=== PATIENT | female | born 1990 | race Hispanic/Latino ===

== ENCOUNTER 2022-02-21 19:38 | Outpatient (CLI) | payer OTHER ==
[~2022-02-21] VITALS: Ht 157.5 cm; Wt 66.5 kg
[2022-02-21 19:53] VITALS: BP 112/74
[2022-02-21] MEDS ORDERED: PRENTAB9 PO (19:57)
[2022-02-21] MEDS ORDERED: LR 1,000 ML IV ONE (21:05)
[2022-02-21] MEDS ORDERED: ONDANSETRON 4MG 2ML VIAL IV ONE (21:05)
[2022-02-21] MEDS ORDERED: LR 1,000 ML IV SCH (21:05)
== END 2022-02-21 22:52 | disposition home or self-care (01) ==
LOC: M LDO 19:38
PROVIDERS: ATTEND Obstetrics & Gynecology
DX: O47.1 False labor at or after 37 completed weeks of gestation (principal); Z3A.37 37 weeks gestation of pregnancy; O21.2 Late vomiting of pregnancy
CPT/HCPCS: 76815; 96360; 96361; G0463; J2405

== ENCOUNTER 2022-03-07 12:51 | Inpatient (IN) | payer OTHER ==
[2022-03-07] VITALS (30 sets, daily range): BP systolic 82–116; BP diastolic 51–74
[~2022-03-07] VITALS: Ht 157.5 cm; Wt 65.8 kg
[~2022-03-07 12:51] MED LIST: PRENTAB9 PO
[2022-03-07] MEDS ORDERED: ONDA4TAB6 PO (13:05)
[2022-03-07] MEDS ORDERED: METHYLERGONOVINE MALEATE 0.2 MG/ML VIAL (J2210) IM PRN (13:25)
[2022-03-07] MEDS ORDERED: OXYTOCIN INJ 10 UNITS/ML VIAL (J2590) IV PRN (13:25)
[2022-03-07] MEDS ORDERED: TRANEXAMIC ACID INJection 1,000 MG in NS 100 ML IV PRN (13:25)
[2022-03-07] MEDS ORDERED: LACTATED RINGER'S 1000 ML IV ONE (13:25)
[2022-03-07] MEDS ORDERED: OXYTOCIN DRIP 30 UNITS in IV 1 EA IV PRN ×4 (13:25)
[2022-03-07 13:51] LABS: HEMATOCRIT 34.3 % (36.0-47.0); HEMOGLOBIN 11.5 g/dl (12.0-15.5); MEAN CORPUSCULAR HEMOGLOBIN 29.5 pg (27.0-33.0); MEAN CORPUSCULAR HGB CONC 33.5 g/dl (32.0-36.5); MEAN CORPUSCULAR VOLUME 87.9 fl (80.0-96.0); PLATELET COUNT, AUTOMATED 247 10^3/uL (150-450); WHITE BLOOD COUNT 7.7 10^3/uL (4.0-10.0)
[2022-03-07] MEDS ORDERED: ACETAMINOPHEN 500 MG TAB PO ONE (15:35)
[2022-03-07] MEDS: LR 1,000 ML IV SCH ×2 (17:34→22:22)
[2022-03-07] MEDS ORDERED: FENTANYL 2MCG/ML ROPIVACAINE 0.2% IN 0.9% NACL 100ML IVBAG As Ordered ONE (18:15)
[2022-03-07] MEDS ORDERED: NALOXONE INJ 0.4MG/1ML VIAL (J2310 PER 1MG) IV PRN ×2 (18:40→18:45)
[2022-03-07] MEDS ORDERED: ONDANSETRON 4MG 2ML VIAL IV PRN ×2 (18:40→18:45)
[2022-03-07] MEDS ORDERED: LR 500 ML IV PRN (18:40)
[2022-03-07] MEDS ORDERED: diphenhydrAMINE 50MG/ML VIAL (J1200) IV PRN ×2 (18:40→18:45)
[2022-03-07] MEDS ORDERED: EPIDURAL/PCA KEYS XX PRN ×2 (18:40→18:45)
[2022-03-07] MEDS ORDERED: METOCLOPRAMIDE INJ 10MG/2ML VIAL (J2765 PER 1) IV PRN (18:45)
[2022-03-07] MEDS ORDERED: FENTANYL/BUPIVACAINE/NACL BAG 250 ML EPIDURAL SCH (18:45)
[2022-03-07] MEDS ORDERED: NALBUPHINE HCL 10 MG/ML AMP (J2300) IV PRN (18:45)
[2022-03-07] MEDS: FENTANYL/ROPIVACAINE/NACL BAG 100 ML EPIDURAL SCH (19:27)
[2022-03-07] MEDS ORDERED: OXYTOCIN DRIP 30 UNITS in IV 1 EA IV SCH (21:00)
[2022-03-07] MEDS: ePHEDrine SULFATE 25 MG/5 ML(5MG/ML) SYRINGE IVP PRN ×2 (22:30→23:56)
[2022-03-08] VITALS (30 sets, daily range): BP systolic 86–118; BP diastolic 50–74
[2022-03-08] MEDS: ePHEDrine SULFATE 25 MG/5 ML(5MG/ML) SYRINGE IVP PRN (00:59)
[2022-03-08] MEDS: LR 1,000 ML IV SCH (01:45)
[2022-03-08] MEDS: FENTANYL/ROPIVACAINE/NACL BAG 100 ML EPIDURAL SCH (04:09)
[2022-03-08] MEDS: PRENATAL VITAMINS CHEWABLE TABLET PO SCH (09:00)
[2022-03-08] MEDS ORDERED: LIDOCAINE 1% MDV 20ML VIAL As Ordered ONE (09:22)
[2022-03-08] MEDS ORDERED: LIDOCAINE 1% MDV 20ML VIAL INFIL ONE (09:25)
[2022-03-08] MEDS ORDERED: RHOGAM 300 MCG (1500 IU) INJ (J2790) IM SCH (10:00)
[2022-03-08] MEDS ORDERED: METHYLERGONOVINE MALEATE 0.2 MG TAB PO PRN (10:00)
[2022-03-08] MEDS ORDERED: IBUPROFEN 600MG TAB PO PRN (10:00)
[2022-03-08] MEDS ORDERED: ACETAMINOPHEN TAB 650MG DOSE (2X325MG) PO PRN (10:00)
[2022-03-08] MEDS ORDERED: ANUSOL HC CREAM 30GM TOP PRN (10:00)
[2022-03-08] MEDS ORDERED: METHYLERGONOVINE MALEATE 0.2 MG/ML VIAL (J2210) IM PRN (10:00)
[2022-03-08] MEDS ORDERED: DIBUCAINE 1% OINTMENT 30GM TOP PRN (10:00)
[2022-03-08] MEDS: IBUPROFEN 800 MG TAB PO PRN (13:09)
[2022-03-08] MEDS: ACETAMINOPHEN 500 MG TAB PO PRN ×2 (13:39→19:46)
[2022-03-08] MEDS ORDERED: LIDOCAINE 5% OINT 30GM TUBE TOP SCH (17:20)
[2022-03-08] MEDS: DOCUSATE SODIUM 100MG CAPSULE PO SCH (21:25)
[2022-03-09] MEDS: IBUPROFEN 800 MG TAB PO PRN (04:27)
[2022-03-09 06:00] VITALS: BP 124/58
[2022-03-09 06:48] LABS: HEMATOCRIT 30.3 % (36.0-47.0); HEMOGLOBIN 9.8 g/dl (12.0-15.5); MEAN CORPUSCULAR HEMOGLOBIN 29.5 pg (27.0-33.0); MEAN CORPUSCULAR HGB CONC 32.3 g/dl (32.0-36.5); MEAN CORPUSCULAR VOLUME 91.3 fl (80.0-96.0); PLATELET COUNT, AUTOMATED 219 10^3/uL (150-450); RED BLOOD COUNT 3.32 10^6/uL (4.00-5.40); WHITE BLOOD COUNT 16.1 10^3/uL (4.0-10.0)
[2022-03-09] MEDS ORDERED: ACET1TAB55 PO (07:21)
[2022-03-09] MEDS ORDERED: IBUP-1022 PO (07:21)
[2022-03-09] MEDS ORDERED: COLA100C5 PO (07:21)
[2022-03-09] MEDS: DOCUSATE SODIUM 100MG CAPSULE PO SCH (09:27)
[2022-03-09] MEDS: PRENATAL VITAMINS CHEWABLE TABLET PO SCH (09:27)
[2022-03-10] MEDS ORDERED: MEASLES,MUMPS,RUBELLA VACCINE INJ (MMR-II) (90707) SC.IMMUN ONE (09:00)
== END 2022-03-09 14:20 | disposition home or self-care (01) | DRG 807 ==
LOC: M LDO 12:51 → M LDI 13:37 → M OBS 03-08 19:35
PROVIDERS: ADMIT Obstetrics & Gynecology; ATTEND Obstetrics & Gynecology
PROC: 10907ZC Drainage of Amniotic Fluid, Therapeutic from Products of Conception, Via Natural or Artificial Opening (ICD-10-PCS; 2022-03-07)
PROC: 10E0XZZ Delivery of Products of Conception, External Approach (ICD-10-PCS; principal; 2022-03-08)
DX: O69.81X0 Labor and delivery complicated by cord around neck, without compression, not applicable or unspecified (principal); Z37.0 Single live birth; Z3A.39 39 weeks gestation of pregnancy; O71.82 Other specified trauma to perineum and vulva; R33.9 Retention of urine, unspecified

== ENCOUNTER 2022-08-23 23:14 | Inpatient (IN) | payer OTHER ==
[~2022-08-23] VITALS: Ht 154.9 cm; Wt 57.1 kg
[~2022-08-23 23:14] MED LIST changes: +ACET1TAB55 PO; +COLA100C5 PO; +IBUP-1022 PO; +ONDA4TAB6 PO
[2022-08-24] MEDS ORDERED: CIPR7.5D2 (02:04)
[2022-08-24] MEDS ORDERED: ONDANSETRON 4MG 2ML VIAL IV ONE (02:40)
[2022-08-24] MEDS ORDERED: cefTRIAXone SOD 2 GM in D5W MINI-BAG PLUS 50 ML IV ONE (02:40)
[2022-08-24] MEDS: MORPHINE 4 MG/ML 1ML VIAL IV PRN ×2 (02:59→03:39)
[2022-08-24 03:14] LABS: BASO # 0.1 10^3/uL (0.0-0.2); BASO % 0.4 % (0.0-1.0); EOS % 0.3 % (0.0-3.0); HEMATOCRIT 36.1 % (36.0-47.0); HEMOGLOBIN 12.6 g/dl (12.0-15.5); LYMPH # 1.9 10^3/uL (1.5-5.0); LYMPH % 15.1 % (24.0-44.0); MEAN CORPUSCULAR HEMOGLOBIN 30.4 pg (27.0-33.0); MEAN CORPUSCULAR HGB CONC 34.9 g/dl (32.0-36.5); MONO # 1.1 10^3/uL (0.0-0.8); MONO % 9.1 % (2.0-8.0); NEUTROPHILS # 9.3 10^3/uL (1.5-8.5); NEUTROPHILS % 74.6 % (36.0-66.0); PLATELET COUNT, AUTOMATED 333 10^3/uL (150-450); RED BLOOD COUNT 4.15 10^6/uL (4.00-5.40); WHITE BLOOD COUNT 12.5 10^3/uL (4.0-10.0)
[2022-08-24 03:54] LABS: BLOOD UREA NITROGEN 5 MG/DL (9-23); CALCIUM LEVEL 8.9 MG/DL (8.5-10.1); CARBON DIOXIDE LEVEL 26 MMOL/L (20-31); CHLORIDE LEVEL 103 MMOL/L (98-107); GLOMERULAR FILTRATION RATE > 60.0 (>60); GLUCOSE, FASTING 107 MG/DL (60-100); POTASSIUM SERUM 3.1 MMOL/L (3.5-5.1); SODIUM LEVEL 138 MMOL/L (136-145)
[2022-08-24] MEDS ORDERED: PIPERACILLIN/TAZOBACTAM SOD 4.5 GM in D5W MINI-BAG PLUS 50 ML IV ONE (05:35)
[2022-08-24] MEDS ORDERED: MULTTAB20 PO (06:31)
[2022-08-24] MEDS ORDERED: CIPR7.5D5 AD (06:31)
[2022-08-24] MEDS ORDERED: ONDANSETRON 4MG 2ML VIAL IV PRN (06:35)
[2022-08-24] MEDS ORDERED: HOME MED LIST COMPLETE! XX SCH (06:35)
[2022-08-24 06:39] LABS: RSV AMPLIFICATION NEGATIVE (NEGATIVE)
[2022-08-24] MEDS: KCL 10MEQ/100ML SWI (KRUN) 10 MEQ in IV 1 EA IV SCH ×3 (07:29→10:03)
[2022-08-24] MEDS: NS 1,000 ML IV SCH ×2 (07:29→18:04)
[2022-08-24 08:02] LABS: BASO # 0.1 10^3/uL (0.0-0.2); BASO % 0.5 % (0.0-1.0); EOS % 0.3 % (0.0-3.0); HEMATOCRIT 33.4 % (36.0-47.0); HEMOGLOBIN 11.4 g/dl (12.0-15.5); LYMPH # 1.2 10^3/uL (1.5-5.0); LYMPH % 11.2 % (24.0-44.0); MEAN CORPUSCULAR HEMOGLOBIN 30.1 pg (27.0-33.0); MEAN CORPUSCULAR HGB CONC 34.1 g/dl (32.0-36.5); MEAN CORPUSCULAR VOLUME 88.1 fl (80.0-96.0); MONO # 0.8 10^3/uL (0.0-0.8); NEUTROPHILS # 8.8 10^3/uL (1.5-8.5); NEUTROPHILS % 80.5 % (36.0-66.0); PLATELET COUNT, AUTOMATED 305 10^3/uL (150-450); RED BLOOD COUNT 3.79 10^6/uL (4.00-5.40); WHITE BLOOD COUNT 10.9 10^3/uL (4.0-10.0)
[2022-08-24 08:21] LABS: BLOOD UREA NITROGEN 5 MG/DL (9-23); CALCIUM LEVEL 8.2 MG/DL (8.5-10.1); CARBON DIOXIDE LEVEL 27 MMOL/L (20-31); CHLORIDE LEVEL 103 MMOL/L (98-107); GLOMERULAR FILTRATION RATE > 60.0 (>60); GLUCOSE, FASTING 109 MG/DL (60-100); MAGNESIUM LEVEL 1.7 MG/DL (1.8-2.4); POTASSIUM SERUM 3.1 MMOL/L (3.5-5.1); SODIUM LEVEL 140 MMOL/L (136-145)
[2022-08-24] MEDS ORDERED: MORPHINE 2 MG/ML 1ML VIAL IV PRN (09:40)
[2022-08-24] MEDS ORDERED: MAG SULF 1GM/100ML (MAG RUN) 1 GM in IV 1 EA IV ONE (10:00)
[2022-08-24] MEDS: HEPARIN SOD (PORCINE) 5000UNITS/ML 1ML VIAL/SYRINGE SQ SCH ×2 (10:03→20:36)
[2022-08-24] MEDS: PIPERACILLIN/TAZOBACTAM SOD 4.5 GM in D5W MINI-BAG PLUS 50 ML IV SCH ×3 (13:48→23:54)
[2022-08-24 14:00] VITALS: BP 110/74
[2022-08-24] MEDS: CIPRODEX OTIC SUSP 7.5ML AD SCH ×2 (15:10→20:36)
[2022-08-24 20:00] VITALS: BP 109/75
[2022-08-24] MEDS: ACETAMINOPHEN TAB 650MG DOSE (2X325MG) PO PRN (20:35)
[2022-08-25] MEDS: NS 1,000 ML IV SCH ×2 (02:30→05:09)
[2022-08-25] MEDS: PIPERACILLIN/TAZOBACTAM SOD 4.5 GM in D5W MINI-BAG PLUS 50 ML IV SCH ×3 (05:09→18:36)
[2022-08-25 05:11] VITALS: BP 101/55
[2022-08-25] MEDS: ACETAMINOPHEN TAB 650MG DOSE (2X325MG) PO PRN (05:15)
[2022-08-25 06:02] LABS: HEMATOCRIT 32.1 % (36.0-47.0); MEAN CORPUSCULAR HEMOGLOBIN 30.2 pg (27.0-33.0); MEAN CORPUSCULAR HGB CONC 34.3 g/dl (32.0-36.5); MEAN CORPUSCULAR VOLUME 88.2 fl (80.0-96.0); PLATELET COUNT, AUTOMATED 343 10^3/uL (150-450); RED BLOOD COUNT 3.64 10^6/uL (4.00-5.40); WHITE BLOOD COUNT 12.6 10^3/uL (4.0-10.0)
[2022-08-25 06:33] LABS: BLOOD UREA NITROGEN 11 MG/DL (9-23); CALCIUM LEVEL 8.3 MG/DL (8.5-10.1); CARBON DIOXIDE LEVEL 26 MMOL/L (20-31); CHLORIDE LEVEL 107 MMOL/L (98-107); CREATININE FOR GFR 0.42 MG/DL (0.55-1.30); GLOMERULAR FILTRATION RATE > 60.0 (>60); GLUCOSE, FASTING 109 MG/DL (60-100); POTASSIUM SERUM 3.6 MMOL/L (3.5-5.1); SODIUM LEVEL 141 MMOL/L (136-145)
[2022-08-25] MEDS: HEPARIN SOD (PORCINE) 5000UNITS/ML 1ML VIAL/SYRINGE SQ SCH ×2 (08:55→21:00)
[2022-08-25] MEDS: CIPRODEX OTIC SUSP 7.5ML AD SCH ×2 (08:55→20:47)
[2022-08-25] MEDS ORDERED: VANCOMYCIN HCL 1,000 MG, VIAL MATE ADAPTER 1 EACH in NS 250 ML IV SCH (09:10)
[2022-08-25] MEDS ORDERED: VANCOMYCIN HCL 750 MG, VIAL MATE ADAPTER 1 EACH in D5W 250 ML IV ONE (10:00)
[2022-08-25] MEDS ORDERED: VANCOMYCIN HCL 500 MG in D5W MINI-BAG PLUS 100 ML IV ONE (11:00)
[2022-08-25] MEDS: KETOROLAC 30 MG/ML 1ML VIAL IV PRN ×2 (11:17→22:10)
[2022-08-25 14:00] VITALS: BP 112/72
[2022-08-25] MEDS: VANCOMYCIN HCL 750 MG, VIAL MATE ADAPTER 1 EACH in D5W 250 ML IV SCH (17:30)
[2022-08-25 21:00] VITALS: BP 91/55
[2022-08-26] MEDS: PIPERACILLIN/TAZOBACTAM SOD 4.5 GM in D5W MINI-BAG PLUS 50 ML IV SCH ×5 (00:11→23:54)
[2022-08-26] MEDS: VANCOMYCIN HCL 750 MG, VIAL MATE ADAPTER 1 EACH in D5W 250 ML IV SCH (01:39)
[2022-08-26] MEDS: KETOROLAC 30 MG/ML 1ML VIAL IV PRN ×2 (05:33→21:52)
[2022-08-26 05:42] VITALS: BP 106/67
[2022-08-26 08:29] LABS: BASO % 0.6 % (0.0-1.0); EOS # 0.1 10^3/uL (0.0-0.5); HEMOGLOBIN 10.8 g/dl (12.0-15.5); LYMPH # 2.6 10^3/uL (1.5-5.0); LYMPH % 39.2 % (24.0-44.0); MEAN CORPUSCULAR HEMOGLOBIN 30.1 pg (27.0-33.0); MEAN CORPUSCULAR HGB CONC 33.8 g/dl (32.0-36.5); MEAN CORPUSCULAR VOLUME 89.1 fl (80.0-96.0); MONO # 0.6 10^3/uL (0.0-0.8); MONO % 9.6 % (2.0-8.0); NEUTROPHILS # 3.3 10^3/uL (1.5-8.5); NEUTROPHILS % 49.5 % (36.0-66.0); PLATELET COUNT, AUTOMATED 330 10^3/uL (150-450); RED BLOOD COUNT 3.59 10^6/uL (4.00-5.40); WHITE BLOOD COUNT 6.7 10^3/uL (4.0-10.0)
[2022-08-26 08:58] LABS: BLOOD UREA NITROGEN 11 MG/DL (9-23); CALCIUM LEVEL 7.6 MG/DL (8.5-10.1); CARBON DIOXIDE LEVEL 26 MMOL/L (20-31); CHLORIDE LEVEL 106 MMOL/L (98-107); CREATININE FOR GFR 0.52 MG/DL (0.55-1.30); GLOMERULAR FILTRATION RATE > 60.0 (>60); GLUCOSE, FASTING 87 MG/DL (60-100); POTASSIUM SERUM 3.3 MMOL/L (3.5-5.1); SODIUM LEVEL 140 MMOL/L (136-145)
[2022-08-26] MEDS: HEPARIN SOD (PORCINE) 5000UNITS/ML 1ML VIAL/SYRINGE SQ SCH ×2 (09:00→20:03)
[2022-08-26] MEDS: VANCOMYCIN HCL 1,000 MG, VIAL MATE ADAPTER 1 EACH in D5W 250 ML IV SCH ×2 (09:53→17:22)
[2022-08-26] MEDS: CIPRODEX OTIC SUSP 7.5ML AD SCH ×2 (09:53→20:03)
[2022-08-26 14:00] VITALS: BP 107/69
[2022-08-26] MEDS: ACETAMINOPHEN TAB 650MG DOSE (2X325MG) PO PRN (14:05)
[2022-08-26] MEDS: ONDANSETRON 4MG ORAL DISINTEGRATING TAB PO PRN (14:05)
[2022-08-26] MEDS: LACTOBACILLUS ACIDOPHILUS CAP (BACID) PO SCH ×2 (18:31→20:03)
[2022-08-26 22:00] VITALS: BP 106/68
[2022-08-27] MEDS: VANCOMYCIN HCL 1,000 MG, VIAL MATE ADAPTER 1 EACH in D5W 250 ML IV SCH ×2 (00:20→08:49)
[2022-08-27 05:25] VITALS: BP 120/80
[2022-08-27] MEDS: PIPERACILLIN/TAZOBACTAM SOD 4.5 GM in D5W MINI-BAG PLUS 50 ML IV SCH ×2 (05:40→12:34)
[2022-08-27] MEDS: KETOROLAC 30 MG/ML 1ML VIAL IV PRN (05:43)
[2022-08-27 05:52] LABS: BASO # 0.1 10^3/uL (0.0-0.2); BASO % 1.1 % (0.0-1.0); EOS # 0.1 10^3/uL (0.0-0.5); EOS % 1.7 % (0.0-3.0); HEMATOCRIT 33.9 % (36.0-47.0); HEMOGLOBIN 11.3 g/dl (12.0-15.5); LYMPH # 2.4 10^3/uL (1.5-5.0); LYMPH % 44.2 % (24.0-44.0); MEAN CORPUSCULAR HEMOGLOBIN 29.6 pg (27.0-33.0); MEAN CORPUSCULAR HGB CONC 33.3 g/dl (32.0-36.5); MEAN CORPUSCULAR VOLUME 88.7 fl (80.0-96.0); MONO # 0.5 10^3/uL (0.0-0.8); MONO % 9.7 % (2.0-8.0); NEUTROPHILS # 2.3 10^3/uL (1.5-8.5); NEUTROPHILS % 42.9 % (36.0-66.0); PLATELET COUNT, AUTOMATED 366 10^3/uL (150-450); RED BLOOD COUNT 3.82 10^6/uL (4.00-5.40); WHITE BLOOD COUNT 5.5 10^3/uL (4.0-10.0)
[2022-08-27 06:13] LABS: BLOOD UREA NITROGEN 7 MG/DL (9-23); CALCIUM LEVEL 8.1 MG/DL (8.5-10.1); CARBON DIOXIDE LEVEL 29 MMOL/L (20-31); CHLORIDE LEVEL 106 MMOL/L (98-107); CREATININE FOR GFR 0.59 MG/DL (0.55-1.30); GLOMERULAR FILTRATION RATE > 60.0 (>60); GLUCOSE, FASTING 90 MG/DL (60-100); POTASSIUM SERUM 3.5 MMOL/L (3.5-5.1); SODIUM LEVEL 141 MMOL/L (136-145)
[2022-08-27] MEDS: ONDANSETRON 4MG ORAL DISINTEGRATING TAB PO PRN (07:43)
[2022-08-27] MEDS: LACTOBACILLUS ACIDOPHILUS CAP (BACID) PO SCH ×2 (08:49→12:34)
[2022-08-27] MEDS: HEPARIN SOD (PORCINE) 5000UNITS/ML 1ML VIAL/SYRINGE SQ SCH (08:49)
[2022-08-27] MEDS: CIPRODEX OTIC SUSP 7.5ML AD SCH (08:50)
[2022-08-27 09:00] VITALS: BP 110/60
[2022-08-27] MEDS ORDERED: CIPR-249 PO (13:25)
[2022-08-27] MEDS ORDERED: RISATAB3 PO (13:25)
[2022-08-27] MEDS ORDERED: CLIN150C17 PO (13:25)
[2022-08-27] MEDS ORDERED: ACET1TAB55 PO (13:25)
[2022-08-27 14:00] VITALS: BP 123/79
== END 2022-08-27 15:55 | disposition home or self-care (01) | DRG 153 ==
LOC: M ED 23:14 → M ED INP 23:15 → ENRESERV 08-24 08:44 → M MSPAV 08-24 09:40 → OBSVTOIN 08-25 23:09
PROVIDERS: ADMIT Family Medicine; ATTEND Internal Medicine
DX: H70.001 Acute mastoiditis without complications, right ear (principal); H60.91 Unspecified otitis externa, right ear; E87.6 Hypokalemia; E83.42 Hypomagnesemia

== ENCOUNTER 2022-08-31 19:10 | Inpatient (IN) | payer SELFPAY ==
[~2022-08-31] VITALS: Ht 154.9 cm; Wt 57.5 kg
[~2022-08-31 19:10] MED LIST changes: +CIPR-249 PO; +CIPR7.5D2; +CIPR7.5D5 AD; +CLIN150C17 PO; +MULTTAB20 PO; +RISATAB3 PO
[2022-08-31] MEDS ORDERED: ONDANSETRON 4MG ORAL DISINTEGRATING TAB PO ONE (20:00)
[2022-08-31] MEDS ORDERED: ONDANSETRON 4MG 2ML VIAL IV ONE (20:30)
[2022-08-31] MEDS ORDERED: NS 1,000 ML IV ONE ×2 (20:30→21:35)
[2022-08-31] MEDS ORDERED: KETOROLAC 30 MG/ML 1ML VIAL IV ONE (20:35)
[2022-08-31 20:55] LABS: BASO # 0.1 10^3/uL (0.0-0.2); BASO % 0.4 % (0.0-1.0); EOS % 0.1 % (0.0-3.0); HEMATOCRIT 35.6 % (36.0-47.0); HEMOGLOBIN 12.2 g/dl (12.0-15.5); LYMPH # 1.7 10^3/uL (1.5-5.0); LYMPH % 10.4 % (24.0-44.0); MEAN CORPUSCULAR HEMOGLOBIN 29.7 pg (27.0-33.0); MEAN CORPUSCULAR HGB CONC 34.3 g/dl (32.0-36.5); MEAN CORPUSCULAR VOLUME 86.6 fl (80.0-96.0); NEUTROPHILS % 78.7 % (36.0-66.0); PLATELET COUNT, AUTOMATED 412 10^3/uL (150-450); RED BLOOD COUNT 4.11 10^6/uL (4.00-5.40); WHITE BLOOD COUNT 16.5 10^3/uL (4.0-10.0)
[2022-08-31 21:16] LABS: ALBUMIN 3.3 G/DL (3.2-5.2); BILIRUBIN,DIRECT 0.1 MG/DL (<0.4); BILIRUBIN,TOTAL 0.3 MG/DL (0.3-1.2); TOTAL PROTEIN 7.2 G/DL (5.7-8.2)
[2022-08-31 21:16] LABS: ALBUMIN 3.4 G/DL (3.2-5.2); BILIRUBIN,TOTAL 0.4 MG/DL (0.3-1.2); CALCIUM LEVEL 8.8 MG/DL (8.5-10.1); CREATININE FOR GFR 3.37 MG/DL (0.55-1.30); GLOMERULAR FILTRATION RATE 16.9 (>60); POTASSIUM SERUM 4.1 MMOL/L (3.5-5.1); TOTAL PROTEIN 7.3 G/DL (5.7-8.2)
[2022-08-31 21:19] LABS: MONO # 1.6 10^3/uL (0.0-0.8)
[2022-08-31 22:57] LABS: RSV AMPLIFICATION NEGATIVE (NEGATIVE)
[2022-09-01] MEDS ORDERED: MOM 30ML SUSPENSION UDC PO PRN (00:55)
[2022-09-01] MEDS ORDERED: ACETAMINOPHEN TAB 650MG DOSE (2X325MG) PO PRN (00:55)
[2022-09-01] MEDS ORDERED: MAALOX 30 ML SUSP *UDC PO PRN (00:55)
[2022-09-01] MEDS ORDERED: CLEO300C2 PO (01:19)
[2022-09-01] MEDS ORDERED: CIPR-249 PO (01:19)
[2022-09-01] MEDS ORDERED: RISATAB3 PO (01:19)
[2022-09-01] MEDS ORDERED: HOME MED LIST COMPLETE! XX SCH (01:25)
[2022-09-01] MEDS: NS 1,000 ML IV SCH ×2 (01:46→10:08)
[2022-09-01] MEDS ORDERED: HYDROMORPHONE HCL 0.5 MG/ 0.5 ML SYRINGE IV PRN (02:05)
[2022-09-01 02:52] LABS: CREATININE,RANDOM URINE 64.9 MG/DL
[2022-09-01 03:30] VITALS: BP 140/87
[2022-09-01] MEDS: ONDANSETRON 4MG 2ML VIAL IV PRN ×2 (03:55→10:06)
[2022-09-01] MEDS: CIPRODEX OTIC SUSP 7.5ML AD SCH ×3 (04:09→20:07)
[2022-09-01 06:00] VITALS: BP 139/88
[2022-09-01 08:10] LABS: ALBUMIN 2.8 G/DL (3.2-5.2); BILIRUBIN,DIRECT 0.1 MG/DL (<0.4); BILIRUBIN,TOTAL 0.4 MG/DL (0.3-1.2); CALCIUM LEVEL 7.7 MG/DL (8.5-10.1); CREATININE FOR GFR 2.97 MG/DL (0.55-1.30); GLOMERULAR FILTRATION RATE 19.6 (>60); MAGNESIUM LEVEL 2.1 MG/DL (1.8-2.4); POTASSIUM SERUM 3.5 MMOL/L (3.5-5.1); TOTAL PROTEIN 6.2 G/DL (5.7-8.2)
[2022-09-01 09:20] LABS: BASO # 0.1 10^3/uL (0.0-0.2); BASO % 0.7 % (0.0-1.0); EOS # 0.1 10^3/uL (0.0-0.5); EOS % 0.9 % (0.0-3.0); HEMATOCRIT 38.1 % (36.0-47.0); HEMOGLOBIN 12.6 g/dl (12.0-15.5); LYMPH # 1.9 10^3/uL (1.5-5.0); LYMPH % 13.5 % (24.0-44.0); MEAN CORPUSCULAR HEMOGLOBIN 29.3 pg (27.0-33.0); MEAN CORPUSCULAR HGB CONC 33.1 g/dl (32.0-36.5); MEAN CORPUSCULAR VOLUME 88.6 fl (80.0-96.0); MONO % 13.4 % (2.0-8.0); NEUTROPHILS % 71.1 % (36.0-66.0); PLATELET COUNT, AUTOMATED 407 10^3/uL (150-450); WHITE BLOOD COUNT 14.1 10^3/uL (4.0-10.0)
[2022-09-01 10:05] LABS: MONO # 1.9 10^3/uL (0.0-0.8)
[2022-09-01] MEDS: LACTOBACILLUS ACIDOPHILUS CAP (BACID) PO SCH (10:06)
[2022-09-01 14:00] VITALS: BP 127/81
[2022-09-01] MEDS: KCL 20MEQ in NS 1000ML 1,000 ML IV SCH (15:23)
[2022-09-01 16:10] LABS: C REACTIVE PROTEIN QUANTITATIV 7.8 MG/DL (<1.0)
[2022-09-01 16:39] LABS: ERYTHROCYTE SEDIMENTATION RATE 44 mm/hr (0-20)
[2022-09-01 18:40] LABS: CALCIUM LEVEL 7.9 MG/DL (8.5-10.1); CREATININE FOR GFR 2.68 MG/DL (0.55-1.30); GLOMERULAR FILTRATION RATE 22.1 (>60); POTASSIUM SERUM 3.6 MMOL/L (3.5-5.1)
[2022-09-01 20:40] VITALS: BP 136/91
[2022-09-02] MEDS: KCL 20MEQ in NS 1000ML 1,000 ML IV SCH ×2 (00:19→09:15)
[2022-09-02 05:25] VITALS: BP 133/91
[2022-09-02 06:19] LABS: HEMATOCRIT 34.8 % (36.0-47.0); HEMOGLOBIN 11.6 g/dl (12.0-15.5); MEAN CORPUSCULAR HEMOGLOBIN 29.7 pg (27.0-33.0); MEAN CORPUSCULAR HGB CONC 33.3 g/dl (32.0-36.5); PLATELET COUNT, AUTOMATED 395 10^3/uL (150-450); RED BLOOD COUNT 3.91 10^6/uL (4.00-5.40); WHITE BLOOD COUNT 12.3 10^3/uL (4.0-10.0)
[2022-09-02 06:44] LABS: CALCIUM LEVEL 7.6 MG/DL (8.5-10.1); CREATININE FOR GFR 2.6 MG/DL (0.55-1.30); GLOMERULAR FILTRATION RATE 22.9 (>60); MAGNESIUM LEVEL 1.9 MG/DL (1.8-2.4); POTASSIUM SERUM 4.2 MMOL/L (3.5-5.1)
[2022-09-02 07:02] LABS: ATYPICAL LYMPH 2 % (0-5); BASOPHILS 2 % (0-1); LYMPHOCYTES 16 % (16-44); MONOCYTES 8 % (0-5); NEUTROPHILS 72 % (28-66)
[2022-09-02 07:04] LABS: PLATELET ESTIMATE NORMAL (NORMAL)
[2022-09-02] MEDS: LACTOBACILLUS ACIDOPHILUS CAP (BACID) PO SCH (09:08)
[2022-09-02] MEDS: CIPRODEX OTIC SUSP 7.5ML AD SCH ×2 (09:09→20:12)
[2022-09-02] MEDS: NS 1,000 ML IV SCH ×2 (10:28→20:11)
[2022-09-02 14:00] VITALS: BP 133/89
[2022-09-02] MEDS: ONDANSETRON 4MG 2ML VIAL IV PRN (17:47)
[2022-09-02] MEDS ORDERED: SIMETHICONE 80MG CHEW TAB PO PRN (20:15)
[2022-09-02 21:00] VITALS: BP 136/93
[2022-09-03 05:40] VITALS: BP 120/85
[2022-09-03] MEDS: NS 1,000 ML IV SCH (06:06)
[2022-09-03 06:17] LABS: BASO # 0.1 10^3/uL (0.0-0.2); EOS # 0.2 10^3/uL (0.0-0.5); EOS % 2.2 % (0.0-3.0); HEMATOCRIT 33.8 % (36.0-47.0); HEMOGLOBIN 11.1 g/dl (12.0-15.5); LYMPH # 1.7 10^3/uL (1.5-5.0); LYMPH % 17.2 % (24.0-44.0); MEAN CORPUSCULAR HEMOGLOBIN 29.4 pg (27.0-33.0); MEAN CORPUSCULAR HGB CONC 32.8 g/dl (32.0-36.5); MEAN CORPUSCULAR VOLUME 89.4 fl (80.0-96.0); MONO # 1.2 10^3/uL (0.0-0.8); MONO % 12.1 % (2.0-8.0); NEUTROPHILS # 6.6 10^3/uL (1.5-8.5); NEUTROPHILS % 67.2 % (36.0-66.0); PLATELET COUNT, AUTOMATED 415 10^3/uL (150-450); RED BLOOD COUNT 3.78 10^6/uL (4.00-5.40); WHITE BLOOD COUNT 9.8 10^3/uL (4.0-10.0)
[2022-09-03 06:41] LABS: CALCIUM LEVEL 8.3 MG/DL (8.5-10.1); CREATININE FOR GFR 2.04 MG/DL (0.55-1.30); GLOMERULAR FILTRATION RATE 30.2 (>60); MAGNESIUM LEVEL 1.6 MG/DL (1.8-2.4); POTASSIUM SERUM 3.9 MMOL/L (3.5-5.1)
[2022-09-03] MEDS ORDERED: CIPR7.5D2 AD (09:30)
[2022-09-03] MEDS: LACTOBACILLUS ACIDOPHILUS CAP (BACID) PO SCH (09:36)
[2022-09-03] MEDS: CIPRODEX OTIC SUSP 7.5ML AD SCH (09:37)
[2022-09-03] MEDS: MAG SULF 1GM/100ML (MAG RUN) 1 GM in IV 1 EA IV SCH ×2 (09:40→10:59)
[2022-09-03] MEDS: ONDANSETRON 4MG 2ML VIAL IV PRN (11:16)
== END 2022-09-03 12:33 | disposition home or self-care (01) | DRG 469 ==
LOC: M ED 19:10 → M ED INP 09-01 02:36 → M MSPAV 09-01 03:29
PROVIDERS: ADMIT Internal Medicine; ATTEND Internal Medicine
DX: N17.9 Acute kidney failure, unspecified (principal); K52.1 Toxic gastroenteritis and colitis; E87.1 Hypo-osmolality and hyponatremia; N12 Tubulo-interstitial nephritis, not specified as acute or chronic; H60.91 Unspecified otitis externa, right ear; H70.91 Unspecified mastoiditis, right ear; Z91.018 Allergy to other foods; K21.9 Gastro-esophageal reflux disease without esophagitis; E87.6 Hypokalemia; R11.2 Nausea with vomiting, unspecified; E86.0 Dehydration; D64.9 Anemia, unspecified; T36.8X5A Adverse effect of other systemic antibiotics, initial encounter

== ENCOUNTER → 2023-07-23 | Outpatient (CLI) | payer OTHER ==
[~2023-07-23] MED LIST changes: +CIPR7.5D2 AD; +CLEO300C2 PO
== END ==
LOC: M RAD 16:55
PROVIDERS: ATTEND Student in an Organized Health Care Education/Training Program
DX: M25.572 Pain in left ankle and joints of left foot (principal)